=== PATIENT | male | born 1960 | race Caucasian/White ===

== ENCOUNTER 2019-02-08 10:51 | Emergency (ER) | payer MEDICARE ==
[2019-02-08] MEDS ORDERED: TORAdol 30 mg Injection IM ONE (11:18)
[2019-02-08] MEDS ORDERED: TORAdol 30 mg Injection ONE (11:22)
--- NOTE | 2019-02-08 11:25 | ERPHSYRPT ---
- History of Present Illness Time Seen by Provider: 02/08/19 11:12 Source: patient Exam Limitations: clinical condition Patient Subjective Stated Complaint: Viet states cronic back and leg pain with Diabetic neuropathy. Patient states pain clinic has not called in his new script. Chucho states the out patinet clinic told him to come to the ER Triage Nursing Assessment: Viet ambulated into ER alert and orientated complaints of back and leg pain Physician History: PATIENT WITH A HISTORY OF CHRONIC LOW BACK PAIN, FOR YEARS, TAKES NORCO. TOOK HIS LAST DOSE OF NORCO THIS MORNING. STATES IS PRESCRIPTION FOR NORCO WAS NOT AT THE PHARMACY YESTERDAY AND REQUEST PAIN MEDICATION. DENIES CHANGE IN HIS PAIN DISCOMFORT, RADIATION OF PAIN IN HIS LEGS, LOSS OF BOWEL OR BLADDER FUNCTION, WEAKNESS IN EXTREMITIES. Timing/Duration: other (CHRONIC LOW BACK PAIN) Quality: sharp Back Pain Location: lumbar spine Back Pain Radiation: buttocks Severity of Pain-Max: moderate Severity of Pain-Current: moderate Modifying Factors: Improves With: movement Associated Symptoms: denies symptoms Previous symptoms: same symptoms as today Allergies/Adverse Reactions: No Known Drug Allergies Allergy (Unverified 02/08/19 11:10) Hx Tetanus, Diphtheria Vaccination/Date Given: Yes Hx Influenza Vaccination/Date Given: Yes Hx Pneumococcal Vaccination/Date Given: Yes Immunizations Up to Date: Yes - Review of Systems Constitutional: No Symptoms, No Fever, No Chills Eyes: No Symptoms Ears, Nose, & Throat: No Symptoms Respiratory: No Cough, No Dyspnea Cardiac: No Symptoms, No Chest Pain, No Edema, No Syncope Abdominal/Gastrointestinal: No Symptoms, No Abdominal Pain, No Nausea, No Vomiting, No Diarrhea Genitourinary Symptoms: No Symptoms, No Dysuria Musculoskeletal: No Back Pain, No Neck Pain Skin: No Symptoms, No Rash Neurological: No Dizziness, No Focal Weakness, No Sensory Changes Psychological: No Symptoms Endocrine: No Symptoms All Other Systems: Reviewed and Negative - Past Medical History Pertinent Past Medical History: Yes Neurological History: Peripheral Neuropathy ENT History: Cataracts Cardiac History: Arrhythmia Respiratory History: No Pertinent History Endocrine Medical History: Diabetes Type II Musculoskeletal History: No Pertinent History GI Medical History: No Pertinent History History: No Pertinent History Psycho-Social History: No Pertinent History Male Reproductive Disorders: No Pertinent History - Past Surgical History Past Surgical History: Yes Neuro Surgical History: No Pertinent History Cardiac: No Pertinent History Respiratory: No Pertinent History Gastrointestinal: No Pertinent History Genitourinary: No Pertinent History Musculoskeletal: Other Male Surgical History: No Pertinent History Other Surgical History: back surgery, surgery to left foot, elyse to right arm, - Social History Smoking Status: Never smoker Exposure to second hand smoke: No Drug Use: none Patient Lives Alone: No - Nursing Vital Signs Nursing Vital Signs: Initial Vital Signs Temperature 98.1 F 02/08/19 10:58 Pulse Rate 83 02/08/19 10:58 Respiratory Rate 20 02/08/19 10:58 Blood Pressure 140/80 02/08/19 10:58 Pain Scale Pain Intensity [Back] 7 Pain Intensity 7 - Physical Exam General Appearance: no apparent distress Eye Exam: PERRL/EOMI Neck Exam: normal inspection Respiratory Exam: normal breath sounds Cardiovascular Exam: regular rate/rhythm Gastrointestinal Exam: soft, normal bowel sounds Back Exam: normal inspection, vertebral tenderness (OVER LUMBAR SPINE L-1 TO L-5 , NO SACROILIAC JOINT TENDERNESS), decreased range of motion, point tenderness Peripheral Pulses: carotid (R): 2+, carotid (L): 2+, femoral (R): 2+, femoral (L ): 2+, dorsalis-pedis (R): 2+, dorsalis-pedis (L): 2+ Neurologic Exam: alert, oriented x 3, cooperative Skin Exam: normal color, warm SpO2 Interpretation: normal SpO2: 98 Ordered Tests: Medication Summary Discontinued Medications Generic Name Dose Route Start Last Admin Trade Name Abnerq PRN Reason Stop Dose Admin Ketorolac Tromethamine 60 mg 02/08/19 11:18 02/08/19 11:23 Toradol 30 Mg Injection IM 02/08/19 11:19 60 mg STAT ONE Administration Ketorolac Tromethamine Confirm 02/08/19 11:22 Toradol 30 Mg Injection Administered 02/08/19 11:23 Dose 30 mg .ROUTE .STK-MED ONE - Progress Progress Note: 02/08/19 11:25 TORADOL 60MG IM Counseled pt/family regarding: diagnosis, need for follow-up - Departure Departure Disposition: Home Clinical Impression: CHRONIC LOW BACK PAIN Condition: Stable Critical Care Time: No Referrals: LUCI WADDELL [Primary Care Provider] - Additional Instructions: TORADOL 10MG EVERY 6 HOURS NEEDED FOR PAIN DISCOMFORT. ZANAFLEX 4MG TWICE DAILY FOR MUSCLE SPASM FOR 5 DAYS. FOLLOWUP WITH YOUR PRIMARY CARE PROVIDER TODAY AND PAIN CLINIC IN 3 DAYS. Prescriptions: Ketorolac Tromethamine [Toradol] 10 mg PO Q6H PRN PRN #20 tablet PRN Reason: Pain Orphenadrine Citrate 100 mg [Norflex 100 MG Tablet] 100 mg PO BID #10 tab
[2019-02-08 11:56] VITALS: BP 130/79; PULSE 63; O2SAT 95
== END 2019-02-08 12:26 | disposition home or self-care (01) ==
LOC: ED 10:51
DX: M54.5 Low back pain (principal); G89.29 Other chronic pain
CPT/HCPCS: 96372; 99283; J1885